=== PATIENT | male | born 1945 | race Caucasian/White ===

== ENCOUNTER 2017-03-02 07:49 | Outpatient (CLI) | payer MEDICARE, OTHER | END 2017-03-02 07:50 | disposition home or self-care (01) | DX: R19.7 Diarrhea, unspecified (principal) ==

== ENCOUNTER 2018-01-06 11:53 | Outpatient (CLI) | payer MEDICARE, OTHER ==
--- NOTE | 2018-01-06 12:51 | XRAY Report ---
THREE VIEW LEFT ELBOW: 01/06/2018 CLINICAL INDICATION: Pain. FINDINGS: AP, lateral, oblique views of the left elbow demonstrate no evidence of acute fracture or dislocation. No effusion is present. Posterior soft tissue swelling is present, and a small olecranon enthesophyte is noted. IMPRESSION: POSTERIOR SOFT TISSUE SWELLING. NO EVIDENCE OF FRACTURE. TD: 01/06/2018 12:51
== END 2018-01-06 11:54 | disposition home or self-care (01) ==
LOC: DI 11:53
PROVIDERS: ATTEND Specialist
DX: M25.522 Pain in left elbow (principal); R22.32 Localized swelling, mass and lump, left upper limb

== ENCOUNTER 2018-03-30 09:35 | Day surgery (SDC) | payer MEDICARE, OTHER ==
--- NOTE | 2018-03-30 10:22 | ED Physician Documentation ---
PD HPI UPPER EXT INJURY - Stated complaint Stated Complaint: SWOLLEN PINKY - Chief complaint Chief Complaint: Ext Problem - History obtained from History obtained from: Patient - History of Present Illness Location: Left, Finger (Little finger) Timing - duration: Days (Present for past year, but worse for the past ten days. ) Worsened by: Palpating Associated symptoms: Swelling, Discolored Recently seen: Clinic (Sent here from Dr. Boggs's office.) - Additonal information Additional information: The patient is a 72-year-old male who presents with pain and swelling at the DIP joint of his left little finger. He noticed a "bump" at the joint for the past year, but it is become much more swollen and painful over the past 10 days. He was seen this morning by his primary physician, and was sent here for further evaluation and treatment. Past history is significant for shrapnel injuries while serving in the in [employer]. Review of Systems Constitutional: denies: Fever Respiratory: denies: Dyspnea Skin: denies: Rash Musculoskeletal: reports: Extremity pain (Left little finger.), Joint swelling ( DIP joint in left little finger.) Neurologic: denies: Focal weakness, Numbness PD PAST MEDICAL HISTORY - Past Medical History Cardiovascular: Coronary artery disease, Other Respiratory: Pneumonia, Sleep apnea Endocrine/Autoimmune: None GI: None : None Psych: Claustrophobia Musculoskeletal: None Derm: None - Past Surgical History Past Surgical History: Yes Cardiovascular: Coronary stent - Present Medications Home Medications: Ambulatory Orders Medication Instructions Recorded Confirmed Lorazepam [Ativan] 1 mg PO TID PRN #10 tablet 10/12/16 10/20/16 Metoprolol Succinate [Toprol Xl] 25 mg PO DAILY 10/17/16 10/20/16 Omeprazole [PriLOSEC] 20 mg PO DAILY 10/17/16 10/20/16 Pravastatin [Pravachol] 40 mg PO QPM 10/17/16 10/20/16 Testosterone [Fortesta] 1 applic TOP DAILY 10/17/16 10/20/16 Valsartan/Hydrochlorothiazide 1 tab PO DAILY 10/17/16 10/20/16 [Valsartan-Hctz 160-12.5 mg Tab] Sildenafil Citrate [Viagra] 100 mg PO PRN PRN 10/20/16 10/20/16 - Allergies Allergies/Adverse Reactions: Allergies Allergy/AdvReac Type Severity Reaction Status Date / Time morphine Allergy Emesis Verified 03/30/18 09:42 - Social History Does the pt smoke?: No Smoking Status: Never smoker Does the pt drink ETOH?: Yes Does the pt have substance abuse?: No - Immunizations Immunizations are current?: No - POLST Patient has POLST: No PD ED PE NORMAL - Vitals Vital signs reviewed: Yes (hypertensive) - General General: Alert and oriented X 3, Well developed/nourished - HEENT HEENT: Atraumatic - Respiratory Respiratory: No respiratory distress - Derm Derm: No rash - Extremities Extremities: Other (There is swelling at the DIP joint of the left little finger with associated erythema. There is tenderness to palpation. There is no break in the integument. Distal neurovascular is intact.) - Neuro Neuro: Alert and oriented X 3, No motor deficit, No sensory deficit Results - Vitals Vitals: Vital Signs - 24 hr 03/30/18 03/30/18 03/30/18 09:40 11:28 15:48 Temperature 36.5 C 36.0 C L Heart Rate 88 70 74 Respiratory 14 18 18 Rate Blood Pressure 168/91 H 159/85 H 150/71 H Blood Pressure [Brachial artery] O2 Saturation 98 97 100 03/30/18 03/30/18 03/30/18 18:00 18:11 18:29 Temperature 36.6 C 36.6 C Heart Rate 82 78 78 Respiratory 16 16 20 Rate Blood Pressure Blood Pressure 157/80 H 149/84 H 154/87 H [Brachial artery] O2 Saturation 98 100 100 Oxygen O2 Source Room air - Labs Labs: Laboratory Tests 03/30/18 03/30/18 03/30/18 11:47 11:47 11:47 WBC 5.4 RBC 4.52 L Hgb 14.9 Hct 43.2 MCV 95.6 H MCH 32.9 H MCHC 34.5 RDW 13.8 Plt Count 163 MPV 9.4 Neut # 3.0 Lymph # 1.7 [place] # 0.6 Eos # 0.1 Baso # 0.0 Absolute Nucleated RBC 0.00 Nucleated RBC % 0.1 ESR PT 11.2 INR 1.0 Sodium 134 L Potassium 4.4 Chloride 100 L Carbon Dioxide 25 Anion Gap 9.0 BUN 15 Creatinine 1.4 H Estimated GFR (MDRD) 50 L Glucose 92 Calcium 9.3 Total Bilirubin 1.0 AST 76 H ALT 94 H Alkaline Phosphatase 55 C-Reactive Protein < 1.0 Total Protein 7.5 Albumin 4.4 Globulin 3.1 Albumin/Globulin Ratio 1.4 Lipase 42 03/30/18 11:47 WBC RBC Hgb Hct MCV MCH MCHC RDW Plt Count MPV Neut # Lymph # [place] # Eos # Baso # Absolute Nucleated RBC Nucleated RBC % ESR 14 PT INR Sodium Potassium Chloride Carbon Dioxide Anion Gap BUN Creatinine Estimated GFR (MDRD) Glucose Calcium Total Bilirubin AST ALT Alkaline Phosphatase C-Reactive Protein Total Protein Albumin Globulin Albumin/Globulin Ratio Lipase PD MEDICAL DECISION MAKING - ED course Complexity details: reviewed results, re-evaluated patient, considered differential, d/w patient, d/w teamcenter consultant ED course: The patient's presentation is significant for bony erosion at the DIP joint of the left index finger, consistent with osteomyelitis. Gouty arthritis remains another consideration. Treatment in the emergency department included administration of ceftriaxone 1 g IV. I discussed his condition with Dr. Lyon, orthopedic surgeon, who evaluated him in the emergency department and plans same day surgery. Departure - Departure Disposition: ED Transfer to [facility] Clinical Impression: Osteomyelitis of finger of left hand Condition: Stable Discharge Date/Time: 03/30/18 16:48
[2018-03-30] MEDS ORDERED: VANCOMYCIN INJ 1 GM in SODIUM CHLORIDE 0.9% 500 ML IV STA (10:30)
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
[2018-03-30 11:57] LABS: BASOPHILS % (AUTO) 0.8 %; EOSINOPHILS # (AUTO) 0.1 10^3/uL (0.0-0.7); EOSINOPHILS % (AUTO) 2.6 %; HGB - HEMOGLOBIN 14.9 g/dL (14.0-18.0); LYMPHOCYTES # (AUTO) 1.7 10^3/uL (1.5-3.5); LYMPHOCYTES % (AUTO) 30.5 %; MEAN CORPUSCULAR HEMOGLOBIN 32.9 pg (27.0-31.0); MEAN CORPUSCULAR HGB CONC 34.5 g/dL (32.0-36.0); MEAN CORPUSCULAR VOLUME 95.6 fL (80.0-94.0); MEAN PLATELET VOLUME 9.4 fL (7.4-11.4); MONOCYTES # (AUTO) 0.6 10^3/uL (0.0-1.0); MONOCYTES % (AUTO) 10.4 %; NEUTROPHILS % (AUTO) 55.7 %; PLT - PLATELET COUNT 163 10^3/uL (130-450); RED BLOOD COUNT 4.52 10^6/uL (4.70-6.10); RED CELL DISTRIBUTION WIDTH 13.8 % (12.0-15.0); WHITE BLOOD COUNT 5.4 x10^3/uL (4.8-10.8)
[2018-03-30 12:05] LABS: PT - PROTHROMBIN TIME 11.2 secs (9.9-12.6)
[2018-03-30 12:16] LABS: ALBUMIN 4.4 g/dL (3.2-5.5); ALBUMIN/GLOBULIN RATIO 1.4 (1.0-2.2); ALKALINE PHOSPHATASE 55 IU/L (42-121); ALT ALANINE AMINOTRANSFERASE 94 IU/L (10-60); AST ASPARTATE AMINOTRANSFERASE 76 IU/L (10-42); BUN - BLOOD UREA NITROGEN 15 mg/dL (6-20); CALCIUM 9.3 mg/dL (8.5-10.3); CARBON DIOXIDE - CO2 25 mmol/L (21-32); CHLORIDE 100 mmol/L (101-111); CREATININE 1.4 mg/dL (0.6-1.2); GFR - MDRD 50 (>89); GLUCOSE 92 mg/dL (70-100); LIPASE 42 U/L (22-51); SODIUM 134 mmol/L (135-145); TOTAL PROTEIN 7.5 g/dL (6.7-8.2)
[2018-03-30 12:18] LABS: CRP - C-REACTIVE PROTEIN < 1.0 mg/dL (0-1.0)
[2018-03-30] MEDS ORDERED: HYDROmorphone 0.5 MG/0.5 ML SYRINGE IVP SCH (12:20)
[2018-03-30] MEDS ORDERED: SODIUM CHLORIDE 0.9% 1,000 ML IV SCH (13:00)
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
[2018-03-30] MEDS ORDERED: ONDANSETRON 4 MG/2 ML VIAL IVP STA (14:09)
[2018-03-30] MEDS ORDERED: PROMETHAZINE INJ 12.5 MG in SODIUM CHLORIDE 0.9% 50 ML IV PRN (15:51)
[2018-03-30] MEDS ORDERED: ROPIVACAINE 0.5% PF 20 ML AMPULE ONE (16:45)
[2018-03-30] MEDS ORDERED: DEXAMETHASONE 4 MG/ML VIAL ONE (16:45)
[2018-03-30] MEDS ORDERED: LIDOCAINE-MPF 2% 5 ML VIAL IM ONE (17:00)
[2018-03-30] MEDS ORDERED: MIDAZOLAM 2 MG/2 ML VIAL IVP ONE (17:00)
[2018-03-30] MEDS ORDERED: PROPOFOL 200 MG/20 ML VIAL IVP ONE (17:00)
[2018-03-30] MEDS ORDERED: LACTATED RINGERS 1,000 ML IV ONE (18:00)
[2018-03-30 18:29] VITALS: BP 154/87
--- NOTE | 2018-03-30 23:03 | PROCEDURE REPORT ---
DATE OF SERVICE: 03/30/2018 Physician: Karl Byers MD SURGEON: Karl Byers MD SPUD SORTER: None. ANESTHESIA: Ulnar nerve block. PREOPERATIVE DIAGNOSIS: Left fifth digit osteomyelitis versus gout. POSTOPERATIVE DIAGNOSIS: Left fifth digit osteomyelitis versus gout. ESTIMATED BLOOD LOSS: 1 mL. SPECIMENS REMOVED: Aerobic and anaerobic cultures, as well as acid fast bacteria cultures. Path specimen sent as well. INDICATIONS: This man had for about a year noticed swelling of the DIP joint of his left fifth digit. Ten days ago, it began to get red and swollen and sore. It got extremely sore and he came to the emergency room today. Radiographs showed a moth-eaten appearance to the distal phalanx and middle phalanx with a generally absent joint space. In the adjacent digit, there was one small "rat bite" out of the distal end of the middle phalanx suggestive of gout. PROCEDURE: The patient was met in the preoperative area by the monument erector who applied an ulnar nerve block. The patient was then taken to the operating room, and placed on the operating table with the left upper extremity prepped and sterilely draped in the usual fashion. A [place] digital tourniquet was used. A slightly curving incision was made generally longitudinally just to the ulnar aspect of the midline over the DIP joint. Immediately expressed was a white pasty substance consistent with gout. There was no purulence. It took about 20-25 meticulous minutes using a curet to try to remove all of the white material. A very small amount of tissue was removed with this. A couple of flakes of bone were also removed where they had been detached. There was really no joint space. The subchondral bone formed a wafer-like and to a very thin, middle phalanx. The wound was irrigated with normal saline. The skin was closed with interrupted 4-0 nylon [id number] sutures. A sterile bandage was applied. Tube gauze was applied over the top of this. The patient was then moved to the transfer cart and taken to the recovery room in good condition, having tolerated the procedure well. TD: 03/30/2018 18:20
== END 2018-03-30 11:38 | disposition home or self-care (01) ==
LOC: ED 09:35 → SDS 11:37
PROVIDERS: ATTEND Orthopaedic Surgery
PROC: 0PBT0ZZ Excision of Right Finger Phalanx, Open Approach (ICD-10-PCS; principal; 2018-03-30 13:00)
DX: M1A.9XX1 Chronic gout, unspecified, with tophus (tophi) (principal); I25.10 Atherosclerotic heart disease of native coronary artery without angina pectoris; M79.89 Other specified soft tissue disorders; M79.645 Pain in left finger(s)
CPT/HCPCS: 11044; 36415; 73130; 80053; 83690; 85025; 85610; 85651; 86140; 87070; 87205; 96365; 96366; 96367; 96375; 99283; 99284; J1170; J3370; J7040; J7120; 87075; 88305

== ENCOUNTER 2018-04-07 12:36 | Emergency (ER) | payer MEDICARE, OTHER ==
--- NOTE | 2018-04-07 12:57 | ED Physician Documentation ---
PD HPI WOUND RECHECK - Stated complaint Stated Complaint: LEFT PINKY PX/POST OP COMP - Chief complaint Chief Complaint: Wound - Histroy obtained from History obtained from: Patient - History of Present Illness Location: Left Hand (little finger) Timing - onset: Today (he has had it bandaged with ointment mostly continually since surgery. Noted redness and swelling today when bandage off. No proximal red streaks.) Associated symptoms: Redness, Swelling, Drainage (possibly, with some wetness to it as well as residual ointment.) Recently seen: Surgery (had gout of the finger and then got infected, was on Keflex initially without improvement, and now on Bactrim. Had surgery of it for debridement of the infection several days ago. Has had it bandaged and regular ointment since.) Review of Systems Constitutional: denies: Chills Nose: denies: Rhinorrhea / runny nose, Congestion Throat: denies: Sore throat Respiratory: denies: Cough GI: denies: Abdominal Pain, Nausea, Vomiting, Diarrhea PD PAST MEDICAL HISTORY - Past Medical History Cardiovascular: Coronary artery disease, Other Respiratory: Pneumonia, Sleep apnea Endocrine/Autoimmune: None GI: None : None Psych: Claustrophobia Musculoskeletal: None Derm: None - Past Surgical History Past Surgical History: Yes Cardiovascular: Coronary stent - Present Medications Home Medications: Ambulatory Orders Medication Instructions Recorded Confirmed Lorazepam [Ativan] 1 mg PO TID PRN #10 tablet 10/12/16 10/20/16 Metoprolol Succinate [Toprol Xl] 25 mg PO DAILY 10/17/16 10/20/16 Omeprazole [PriLOSEC] 20 mg PO DAILY 10/17/16 10/20/16 Pravastatin [Pravachol] 40 mg PO QPM 10/17/16 10/20/16 Testosterone [Fortesta] 1 applic TOP DAILY 10/17/16 10/20/16 Valsartan/Hydrochlorothiazide 1 tab PO DAILY 10/17/16 10/20/16 [Valsartan-Hctz 160-12.5 mg Tab] Sildenafil Citrate [Viagra] 100 mg PO PRN PRN 10/20/16 10/20/16 Doxycycline Monohydrate 100 mg PO BID #14 tablet 04/07/18 Mupirocin 1 applic TP TID #15 oint...g. 04/07/18 - Allergies Allergies/Adverse Reactions: Allergies Allergy/AdvReac Type Severity Reaction Status Date / Time morphine Allergy Emesis Verified 04/07/18 12:48 - Social History Does the pt smoke?: No Smoking Status: Never smoker Does the pt drink ETOH?: Yes Does the pt have substance abuse?: No - Immunizations Immunizations are current?: No - POLST Patient has POLST: No PD ED PE NORMAL - Vitals Vital signs reviewed: Yes - General General: Alert and oriented X 3, No acute distress, Well developed/nourished - Derm Derm: Normal color, Warm and dry, Other (left little finger with some sutures in place. Redness and swelling around the site. No proximal streaking. Some moisture of the wound base and appearance of residual ointment. No pus per se. Normal sesnation at the tip. ) Results - Vitals Vitals: Oxygen O2 Source Room air - Labs Labs: Microbiology 04/07/18 13:28 Wound Culture - Preliminary Finger - Left Pinky No growth PD MEDICAL DECISION MAKING - ED course Complexity details: reviewed old records, reviewed results, considered differential (redness and some swelling but also whitish at edges that looks overly moist. Consider infection and also could be reaction to antibiotic ointment and on too long. Cultures from surgery had no growth, though he was on abx at the time. There was some moisture of the wound today, but not purulence. Culture obtained to see if growth but with caveat that it is surface of wound.) , d/w patient Departure - Departure Disposition: 01 Home, Self Care Clinical Impression: Post op infection Qualifiers: Encounter type: subsequent encounter Qualified Code(s): T81.4XXD - Infection following a procedure, subsequent encounter Condition: Stable Record reviewed to determine appropriate education?: Yes Follow-Up: Karl Byers MD [Provider Admit Priv/Credential] - Prescriptions: Doxycycline Monohydrate 100 mg PO BID #14 tablet Mupirocin 1 applic TP TID #15 oint...g. Comments: The wound does look like it is infected with the redness and swelling and with it increasing. The previous culture has been negative. We will see if the culture from today has any growth but will take a couple of days. Meanwhile consider also the possibility of just local irritation from the ointment or bandaging. I would cleanse the wound 2-3 times a day with dilute peroxide and water or just soap and water and use no ointment today and then tomorrow start using just small amount of mupirocin instead of the Neosporin you have been using. Will also change the sulfa antibiotic to doxycycline twice daily presuming staff is the likely organism. Recheck if still worsening over the next couple of days. Otherwise follow-up with orthopedics on Tuesday. Discharge Date/Time: 04/07/18 13:53
[2018-04-07] MEDS ORDERED: DOXYCYCLINE 100 MG TABLET PO STA (13:28)
[2018-04-07 13:53] VITALS: BP 146/88
== END 2018-04-07 13:53 | disposition home or self-care (01) ==
LOC: ED 12:36
DX: T81.4XXA Infection following a procedure, initial encounter (principal); L08.9 Local infection of the skin and subcutaneous tissue, unspecified; Y83.8 Other surgical procedures as the cause of abnormal reaction of the patient, or of later complication, without mention of misadventure at the time of the procedure
CPT/HCPCS: 87070; 87205; 99283; A9270

== ENCOUNTER 2018-06-08 08:46 | Outpatient (CLI) | payer MEDICARE, OTHER ==
--- NOTE | 2018-06-08 11:00 | Ultrasound Report ---
Procedure Date: 06/08/2018 Accession Number: [id number] / [id number] Procedure: US - Abdomen Limited CPT Code: FULL RESULT: EXAM: Abdomen Limited DATE: 06/08/2018 10:25 AM CLINICAL HISTORY: PERSISTENT LFT ELEVATION COMPARISON: 10/16/2016. TECHNIQUE: Real-time scanning was performed with static images obtained. FINDINGS: Liver: Liver again appears echogenic and heterogeneous. Not seen previously, there is a somewhat geographic appearing 2.1 x 1.7 x 1.2 cm hypoechoic masslike area with nearby parenchymal vasculature not displaced by color Doppler. While this likely represents new focal fatty sparing, the sonographic appearance is somewhat atypical. No other mass is seen. There is no perihepatic ascites. Gallbladder: Surgically absent. Biliary System: Common bile duct measures 4 mm. No intrahepatic or extrahepatic ductal dilatation. Pancreas: Visualized portion is unremarkable. Kidneys: Right: 11.5 cm longitudinally. 0.7 cm exophytic simple cyst. No contour-deforming solid mass, stones, or hydronephrosis. IVC is unremarkable on grayscale ultrasound. IMPRESSION: Hepatic steatosis. Interval development of a hypoechoic masslike lesion. This is felt to most likely represent focal fatty sparing. However, the sonographic appearance is not diagnostic of this. In absence of HCC risk factors or known cancer, close attention on annual ultrasound follow-up is sufficient. If there are risk factors for hepatocellular carcinoma or the patient has a known cancer, multiphase CT or MRI with liver mass protocol is recommended. RADIA
== END 2018-06-08 08:47 | disposition home or self-care (01) ==
LOC: DI 08:46
PROVIDERS: ATTEND Internal Medicine
DX: R74.8 Abnormal levels of other serum enzymes (principal)
CPT/HCPCS: 76705

== ENCOUNTER 2018-07-12 20:48 | Emergency (ER) | payer MEDICARE, OTHER ==
--- NOTE | 2018-07-12 22:08 | ED Physician Documentation ---
PD HPI UPPER EXT INJURY - Stated complaint Stated Complaint: LT WRIST PX - Chief complaint Chief Complaint: Ext Problem - History obtained from History obtained from: Patient - History of Present Illness Location: Left, Wrist Type of injury: No: Fall, Twist Where injury occurred: Home Timing - onset: Today Timing - details: Abrupt onset, Still present Improved by: No: Rest Worsened by: Moving, Palpating Associated symptoms: Swelling, Discolored (red). No: Weakness, Numbness Similar symptoms before: Diagnosis (has not had gout in the wrist, but other joints.) Recently seen: Not recently seen Review of Systems Constitutional: denies: Fever, Chills, Myalgias Nose: denies: Rhinorrhea / runny nose, Congestion Throat: denies: Dental pain / toothache, Sore throat Cardiac: denies: Chest pain / pressure Respiratory: denies: Cough GI: denies: Abdominal Pain Skin: denies: Rash PD PAST MEDICAL HISTORY - Past Medical History Past Medical History: No Cardiovascular: Other Respiratory: Pneumonia, Sleep apnea Neuro: None Endocrine/Autoimmune: None GI: None : None HEENT: None Psych: Claustrophobia Musculoskeletal: Gout Derm: None - Past Surgical History Past Surgical History: Yes General: Cholecystectomy Cardiovascular: Coronary stent - Present Medications Home Medications: Ambulatory Orders Medication Instructions Recorded Confirmed Lorazepam [Ativan] 1 mg PO TID PRN #10 tablet 10/12/16 10/20/16 Metoprolol Succinate [Toprol Xl] 25 mg PO DAILY 10/17/16 10/20/16 Omeprazole [PriLOSEC] 20 mg PO DAILY 10/17/16 10/20/16 Testosterone [Fortesta] 1 applic TOP DAILY 10/17/16 10/20/16 Sildenafil Citrate [Viagra] 100 mg PO PRN PRN 10/20/16 10/20/16 Doxycycline Monohydrate 100 mg PO BID #14 tablet 04/07/18 Mupirocin 1 applic TP TID #15 oint...g. 04/07/18 Simvastatin [Zocor] 07/12/18 Dexamethasone [Decadron] 4 mg PO DAILY #5 tablet 07/13/18 HYDROmorphone [Dilaudid] 2 mg PO Q6H PRN #10 tablet 07/13/18 Naproxen 375 mg PO BID #20 tablet 07/13/18 Ondansetron Odt [Zofran] 4 mg TL Q6H PRN #15 tablet 07/13/18 - Allergies Allergies/Adverse Reactions: Allergies Allergy/AdvReac Type Severity Reaction Status Date / Time morphine Allergy Emesis Verified 07/12/18 20:56 - Social History Does the pt smoke?: No Smoking Status: Never smoker Does the pt drink ETOH?: Yes Does the pt have substance abuse?: No - Immunizations Immunizations are current?: No - POLST Patient has POLST: No PD ED PE NORMAL - Vitals Vital signs reviewed: Yes - General General: Alert and oriented X 3, Well developed/nourished, Other (marked pain with wrist palpation and movement. ) - HEENT HEENT: Pharynx benign - Neck Neck: Supple, no meningeal sign, No adenopathy - Cardiac Cardiac: RRR, No murmur - Respiratory Respiratory: Clear bilaterally - Abdomen Abdomen: Soft, Non tender - Derm Derm: Warm and dry, Other (redness and marked tenderness to touch dorsum left wrist. No skin sores nor lesions. ) - Extremities Extremities: No deformity. No: Normal ROM s pain - Neuro Neuro: Alert and oriented X 3, No motor deficit, No sensory deficit, Normal speech Results - Vitals Vitals: Oxygen O2 Source Room air - Labs Labs: Laboratory Tests 07/12/18 07/12/18 23:03 23:03 WBC 10.4 RBC 4.47 L Hgb 15.1 Hct 42.7 MCV 95.4 H MCH 33.8 H MCHC 35.4 RDW 14.2 Plt Count 190 MPV 10.0 Neut # (Auto) 7.0 H Lymph # (Auto) 2.3 [place] # (Auto) 1.0 Eos # (Auto) 0.0 Baso # (Auto) 0.1 Absolute Nucleated RBC 0.00 Nucleated RBC % 0.0 Sodium 133 L Potassium 3.9 Chloride 99 L Carbon Dioxide 23 Anion Gap 11.0 BUN 14 Creatinine 1.0 Estimated GFR (MDRD) 74 L Glucose 105 H Calcium 9.1 Total Bilirubin 1.4 H AST 28 ALT 42 Alkaline Phosphatase 59 Total Protein 7.4 Albumin 4.4 Globulin 3.0 Albumin/Globulin Ratio 1.5 Lipase 34 PD MEDICAL DECISION MAKING - ED course Complexity details: re-evaluated patient (given IV meds with moderate improvement, no nausea. Given repeat dose of Dilaudid and caused marked nausea and vomiting. Given antiemetic and symptoms improved after short time. ), considered differential (marked pain of wrist. No signs of trauma/skin lesions. Is warm and red. Has had gout in the past. ), d/w patient - Sepsis Event Vital Signs: Oxygen O2 Source Room air Departure - Departure Disposition: 01 Home, Self Care Clinical Impression: Acute pain of left wrist Gout flare Qualifiers: Gout site: wrist Gout etiology: unspecified cause Laterality: left Qualified Code(s): M10.9 - Gout, unspecified Condition: Stable Record reviewed to determine appropriate education?: Yes Instructions: ED Arthritis Gout Follow-Up: Esa White MD [Primary Care Provider] - Prescriptions: Dexamethasone [Decadron] 4 mg PO DAILY #5 tablet HYDROmorphone [Dilaudid] 2 mg PO Q6H PRN #10 tablet PRN Reason: Pain Naproxen 375 mg PO BID #20 tablet Ondansetron Odt [Zofran] 4 mg TL Q6H PRN #15 tablet PRN Reason: Nausea / Vomiting Comments: Drink lots of fluids. Use anti-inflammatories naproxen and dexamethasone as directed for the next 5 days. Ondansetron if needed for nausea. Add Dilaudid oral tablet or your previous oxycodone as needed for pain. Recheck if not well improved over the next couple of days. Discharge Date/Time: 07/13/18 01:22
[2018-07-12] MEDS ORDERED: KETOROLAC 60 MG/2 ML VIAL IVP STA (22:52)
[2018-07-12] MEDS ORDERED: ONDANSETRON 4 MG/2 ML VIAL IVP STA ×2 (22:52→23:57)
[2018-07-12] MEDS ORDERED: HYDROmorphone 1 MG/ML CARPUJECT IVP STA ×2 (22:52→23:35)
[2018-07-12] MEDS ORDERED: DEXAMETHASONE 10 MG/ML VIAL IVP STA (22:53)
[2018-07-12 23:06] LABS: BASOPHILS # (AUTO) 0.1 10^3/uL (0.0-0.1); EOSINOPHILS % (AUTO) 0.3 %; HGB - HEMOGLOBIN 15.1 g/dL (14.0-18.0); LYMPHOCYTES # (AUTO) 2.3 10^3/uL (1.5-3.5); LYMPHOCYTES % (AUTO) 22.2 %; MEAN CORPUSCULAR HEMOGLOBIN 33.8 pg (27.0-31.0); MEAN CORPUSCULAR HGB CONC 35.4 g/dL (32.0-36.0); MEAN CORPUSCULAR VOLUME 95.4 fL (80.0-94.0); MONOCYTES % (AUTO) 9.3 %; NEUTROPHILS % (AUTO) 67.2 %; PLT - PLATELET COUNT 190 10^3/uL (130-450); RED BLOOD COUNT 4.47 10^6/uL (4.70-6.10); RED CELL DISTRIBUTION WIDTH 14.2 % (12.0-15.0); WHITE BLOOD COUNT 10.4 x10^3/uL (4.8-10.8)
[2018-07-12 23:18] LABS: ALBUMIN 4.4 g/dL (3.2-5.5); ALBUMIN/GLOBULIN RATIO 1.5 (1.0-2.2); BILIRUBIN,TOTAL 1.4 mg/dL (0.2-1.0); CALCIUM 9.1 mg/dL (8.5-10.3); TOTAL PROTEIN 7.4 g/dL (6.7-8.2)
[2018-07-13] MEDS ORDERED: PROMETHAZINE INJ 12.5 MG in SODIUM CHLORIDE 0.9% 50 ML IV STA (00:18)
[2018-07-13] MEDS ORDERED: SODIUM CHLORIDE 0.9% 1,000 ML IV ONE (00:18)
[2018-07-13] MEDS ORDERED: SODIUM CHLORIDE 0.9% 0 ML IV ONE (00:30)
[2018-07-13 01:04] VITALS: BP 142/61
== END 2018-07-13 01:22 | disposition home or self-care (01) ==
LOC: ED 20:48
DX: M10.9 Gout, unspecified (principal)
CPT/HCPCS: 36415; 80053; 83690; 85025; 96365; 96375; 96376; 99283; J1170; J7040

== ENCOUNTER 2018-12-25 06:37 | Outpatient (CLI) | payer MEDICARE, OTHER ==
--- NOTE | 2018-12-25 07:32 | Ultrasound Report ---
Reason: ABNORMAL FINDINGS ON DX IMAGING OF LIVER AND BILIA Procedure Date: 12/25/2018 Accession Number: [id number] / [id number] Procedure: US - Abdomen Limited CPT Code: FULL RESULT: EXAM: ABDOMEN ULTRASOUND LIMITED, RUQ EXAM DATE: 12/25/2018 06:43 AM. CLINICAL HISTORY: Abnormal findings within the liver. Please assess. COMPARISON: ABDOMEN LIMITED 06/08/2018 9:43 AM. TECHNIQUE: Real-time scanning was performed with static images obtained. FINDINGS: Liver: Diffusely echogenic hepatic parenchyma. Again seen in the left lobe is a lobular heterogeneous hypoechoic lesion measuring on the current study 2.3 x 1.3 x 1.6 cm, previously measured 2.1 x 1.2 x 1.7 cm. No new hepatic lesions are identified. No intrahepatic ductal dilatation. The liver is upper normal in size, 16.7 cm. Main portal vein flow: Hepatopetal. Gallbladder: Status post cholecystectomy. Biliary System: CBD measures 4 mm. No intrahepatic or extrahepatic ductal dilatation. Other: Right kidney is lobular in contour and normal in echotexture and measures 11.1 cm. No hydronephrosis. Exophytic lower pole cyst is again seen measuring 0.9 x 0.8 cm, previously measured 0.7 x 0.6 cm. IMPRESSION: 1. Diffuse fatty liver. 2. Hypoechoic left hepatic lobe 2.3 cm lesion increased in size compared to the study from 06/08/2018, indeterminate. Further detail with MRI/CT of the liver recommended. 3. Status post cholecystectomy. No biliary ductal dilatation. 4. Lower pole right renal 0.9 cm cyst. RADIA
== END 2018-12-25 06:38 | disposition home or self-care (01) ==
LOC: DI 06:37
PROVIDERS: ATTEND Internal Medicine
DX: K76.0 Fatty (change of) liver, not elsewhere classified (principal); K76.9 Liver disease, unspecified
CPT/HCPCS: 76705

== ENCOUNTER 2019-01-19 09:39 | Outpatient (CLI) | payer MEDICARE, OTHER ==
[2019-01-19 10:09] LABS: CREATININE 1.3 mg/dL (0.6-1.2)
[2019-01-19] MEDS ORDERED: IOPAMIDOL-300 100 ML VIAL ONE (10:11)
[2019-01-19] MEDS ORDERED: IOPAMIDOL-300 100 ML VIAL IVP ONE (10:33)
--- NOTE | 2019-01-19 13:05 | CT Report ---
Reason: HETEROGENOUS HYPOECHOIC MASS 2.3 X 1.3 X 1.6 Procedure Date: 01/19/2019 Accession Number: [id number] / [id number] Procedure: CT - ABDOMEN W/WO CPT Code: FULL RESULT: EXAM: CT ABDOMEN WITHOUT AND WITH CONTRAST EXAM DATE: 01/19/2019 10:41 AM. HISTORY: Heterogenous hypoechoic mass in the liver. COMPARISON: ABDOMEN LIMITED 12/25/2018 6:42 AM ABDOMEN LIMITED 06/08/2018 9:43 AM. TECHNIQUE: Routine helical CT imaging was performed through the abdomen before and after administration of IV contrast: ISOVUE 300 100 ML. Enteric contrast: No. Reconstruction: Coronal and sagittal. In accordance with CT protocol optimization, one or more of the following dose reduction techniques were utilized for this exam: automated exposure control, adjustment of mA and/or KV based on patient size, or use of iterative reconstructive technique. FINDINGS: Lung Bases: Unremarkable. Liver: In the left lobe of the liver corresponding to the hypoechoic lesion on ultrasound is an arterial enhancing lesion which measures 2.0 x 1.1 cm on the arterial phase and has a more difficult geographic appearance on the portal venous phase. The findings are occult on the noncontrast sequence. While the CT appearance is generally compatible with flash filling hemangioma, this would be expected to be hyperechoic on ultrasound. Given the hypoechoic appearance on ultrasound, the lesion is technically indeterminate; enhancement pattern is not diagnostic of HCC as the 7 minute delay images demonstrate that both lesions continue to follow blood pool and lack of washout or pseudocapsule. Background hepatic steatosis. In the dome of the right lobe of the liver, image 10 series 6 is a lesion with similar enhancing characteristics, 1.8 x 1.1 cm, also indeterminate. Gallbladder/Bile Ducts: Status post cholecystectomy. Spleen: Normal. Pancreas: Normal. No masses or ductal obstruction. Adrenal Glands: Normal. Kidneys: Left renal cyst as well as renal hypodensities which are too small to characterize. No obstruction. Peritoneal Cavity/Bowel: Diverticulosis without diverticulitis. No free fluid, free air or adenopathy. No masses or acute inflammatory process. Vasculature: No aneurysms or other significant abnormality. Bones: No significant abnormality. Other: None. IMPRESSION: Left lobe of the liver lesion remains indeterminate. Additional indeterminate lesion in the right hepatic dome. MRI hepatic mass protocol with and without contrast is recommended. Hepatic steatosis. RADIA
== END 2019-01-19 09:40 | disposition home or self-care (01) ==
LOC: LAB 09:39 → DI 09:40
PROVIDERS: ATTEND Internal Medicine
DX: K76.9 Liver disease, unspecified (principal)
CPT/HCPCS: 36415; 74170; 82565; Q9967

== ENCOUNTER 2019-07-17 08:20 | Day surgery (SDC) | payer MEDICARE, OTHER ==
[2019-07-17] MEDS ORDERED: LACTATED RINGERS 1,000 ML IV ONE (08:45)
[2019-07-17] MEDS ORDERED: MIDAZOLAM 2 MG/2 ML VIAL IVP ONE (10:01)
[2019-07-17] MEDS ORDERED: fentaNYL 250 MCG/5 ML VIAL IVP ONE (10:01)
[2019-07-17 11:06] VITALS: BP 130/79
== END 2019-07-17 08:21 | disposition home or self-care (01) ==
LOC: SDS 08:20
PROVIDERS: ATTEND Internal Medicine Gastroenterology
PROC: 0DBH8ZZ Excision of Cecum, Via Natural or Artificial Opening Endoscopic (ICD-10-PCS; 2019-07-17)
PROC: 0DBK8ZZ Excision of Ascending Colon, Via Natural or Artificial Opening Endoscopic (ICD-10-PCS; principal; 2019-07-17 10:00)
DX: R19.4 Change in bowel habit (principal); D12.2 Benign neoplasm of ascending colon; D12.0 Benign neoplasm of cecum; K57.30 Diverticulosis of large intestine without perforation or abscess without bleeding; K21.9 Gastro-esophageal reflux disease without esophagitis; I25.10 Atherosclerotic heart disease of native coronary artery without angina pectoris; I10 Essential (primary) hypertension; G47.30 Sleep apnea, unspecified
CPT/HCPCS: 45380; J3010; J7120

== ENCOUNTER 2019-10-16 13:50 | Emergency (ER) | payer MEDICARE, OTHER ==
[2019-10-16] MEDS ORDERED: ASPIRIN CHEW 81 MG TABLET PO STA (13:59)
--- NOTE | 2019-10-16 14:08 | ED Physician Documentation ---
History of Present Illness - Stated complaint Stated Complaint: CHEST PX - Chief complaint Chief Complaint: Cardiac - Additonal information Additional information: This is a 74-year-old male history of Hypertension, hyperlipidemia, coronary artery disease status post PCI x3 in the RCA, circumflex, and LAD done in 2005 at [facility], who presents with chest pain. Patient states that he Has had several episodes of chest pain over the last 5 days, they typically awoken up at night and been a substernal pressure. This morning at 6 AM he woke up and he had pressure that radiated to his right arm. He took a tablet of hydrocodone and pain resolved somewhat, but the episode lasted around 15 minutes and he states it is bad enough that it scared him. He also had some diaphoresis associated with this episode. He currently has minimal discomfort he describes as a 1 out of 10 pressure without radiation. He denies any shortness of breath. He had a stress test done at [facility] with Dr. Valle 5 years ago which reportedly was reassuring. Review of Systems Constitutional: denies: Fever Nose: denies: Rhinorrhea / runny nose Cardiac: reports: Chest pain / pressure Respiratory: denies: Dyspnea GI: denies: Abdominal Pain, Vomiting : denies: Dysuria Skin: denies: Rash Neurologic: denies: Generalized weakness Immunocompromised: denies: Immunocompromised PD PAST MEDICAL HISTORY - Past Medical History Cardiovascular: Other Respiratory: Pneumonia, Sleep apnea, CPAP use Neuro: None Endocrine/Autoimmune: None GI: GERD : None HEENT: None Psych: Claustrophobia Musculoskeletal: Gout Derm: None - Past Surgical History Past Surgical History: Yes General: Cholecystectomy Cardiovascular: Coronary stent - Present Medications Home Medications: Ambulatory Orders Medication Instructions Recorded Confirmed Metoprolol Succinate [Toprol Xl] 25 mg PO DAILY 10/17/16 10/20/16 Omeprazole [PriLOSEC] 20 mg PO DAILY 10/17/16 07/17/19 Allopurinol 300 mg PO DAILY 07/13/19 07/17/19 Losartan Potassium 100 mg PO DAILY 07/13/19 07/17/19 raNITIdine HCl [Zantac] 150 mg PO BID 07/13/19 07/17/19 Probenecid/Colchicine 1 tab DAILY 10/16/19 10/16/19 [Probenecid-Colchicine Tablet] Testosterone [Fortesta] 10/16/19 metroNIDAZOLE 0.75% GEL 10/16/19 - Allergies Allergies/Adverse Reactions: Allergies Allergy/AdvReac Type Severity Reaction Status Date / Time morphine Allergy Emesis Verified 10/16/19 13:54 - Social History Does the pt smoke?: No Smoking Status: Never smoker Does the pt drink ETOH?: Yes Does the pt have substance abuse?: No - Immunizations Immunizations are current?: No - POLST Patient has POLST: No PD ED PE NORMAL - Vitals Vital signs reviewed: Yes - General General: Alert and oriented X 3, No acute distress - HEENT HEENT: PERRL - Neck Neck: Supple, no meningeal sign - Cardiac Cardiac: RRR, No murmur - Respiratory Respiratory: Clear bilaterally - Abdomen Abdomen: Normal bowel sounds, Soft, Non tender, Non distended - Derm Derm: Warm and dry - Extremities Extremities: No deformity - Neuro Neuro: Alert and oriented X 3 - Psych Psych: Normal mood, Normal affect Results - Vitals Vitals: Vital Signs - 24 hr 10/16/19 10/16/19 17:30 17:45 Heart Rate 78 76 Respiratory 16 16 Rate Blood Pressure 158/95 H 177/95 H O2 Saturation 96 97 Oxygen O2 Source Room air - EKG (time done) 13:57 Other comments: Other comments (Rate 75, rhythm sinus, there is [address] depression in V4 and V5, no ST segment elevation. Intervals are within normal limits.) - Labs Labs: Laboratory Tests 10/16/19 10/16/19 10/16/19 14:05 14:05 14:05 WBC 6.5 RBC 4.90 Hgb 16.6 Hct 48.3 MCV 98.6 H MCH 33.9 H MCHC 34.4 RDW 13.1 Plt Count 190 MPV 11.0 Neut # (Auto) 3.8 Lymph # (Auto) 2.0 [place] # (Auto) 0.5 Eos # (Auto) 0.1 Baso # (Auto) 0.1 Absolute Nucleated RBC 0.00 Nucleated RBC % 0.0 Sodium 136 Potassium 4.1 Chloride 97 L Carbon Dioxide 30 Anion Gap 9.0 BUN 18 Creatinine 1.2 Estimated GFR (MDRD) 60 L Glucose 98 Calcium 9.4 Total Bilirubin 0.9 AST 44 H ALT 63 H Alkaline Phosphatase 67 Troponin I High Sens 511.9 H* Total Protein 7.7 Albumin 4.8 Globulin 2.9 Albumin/Globulin Ratio 1.7 Lipase 58 H PD MEDICAL DECISION MAKING - ED course Complexity details: considered differential (ACS, dysrhythmia, pneumothorax, pneumonia) ED course: Patient arrives his chest discomfort is a 1 out of 10, retention. His EKG does show some slight ST depressions in the precordial leads, but no elevation and there is no past EKG for comparison. He was given 325 aspirin, and labs are drawn. His troponin is quite elevated at 511, Otherwise unrevealing. Repeat EKG shows no significant change from the first. He was started on heparin. He appears to have an NSTEMI at this time, I think he will benefit from transfer to hospital with cardiology, his history, trop are quite concerning. He agrees to the transfer to [facility], and Dr. Pineda accepted at [facility]. Patient remains pain-free on my reevaluation with mild hypertension otherwise vital signs are within normal limits. He was transferred via ALS with heparin running. Departure - Departure Disposition: 02 Transfer Acute Care Hosp Clinical Impression: NSTEMI (non-ST elevation myocardial infarction) Condition: Stable Discharge Date/Time: 10/16/19 18:15
[2019-10-16 14:13] LABS: BASOPHILS # (AUTO) 0.1 10^3/uL (0.0-0.1); BASOPHILS % (AUTO) 0.9 %; EOSINOPHILS # (AUTO) 0.1 10^3/uL (0.0-0.7); EOSINOPHILS % (AUTO) 0.9 %; HGB - HEMOGLOBIN 16.6 g/dL (14.0-18.0); LYMPHOCYTES % (AUTO) 31.5 %; MEAN CORPUSCULAR HEMOGLOBIN 33.9 pg (27.0-31.0); MEAN CORPUSCULAR HGB CONC 34.4 g/dL (32.0-36.0); MEAN CORPUSCULAR VOLUME 98.6 fL (80.0-94.0); MONOCYTES # (AUTO) 0.5 10^3/uL (0.0-1.0); MONOCYTES % (AUTO) 8.1 %; NEUTROPHILS # (AUTO) 3.8 10^3/uL (1.5-6.6); NEUTROPHILS % (AUTO) 58.1 %; PLT - PLATELET COUNT 190 10^3/uL (130-450); RED CELL DISTRIBUTION WIDTH 13.1 % (12.0-15.0); WHITE BLOOD COUNT 6.5 x10^3/uL (4.8-10.8)
[2019-10-16 14:24] LABS: ALBUMIN 4.8 g/dL (3.2-5.5); ALBUMIN/GLOBULIN RATIO 1.7 (1.0-2.2); BILIRUBIN,TOTAL 0.9 mg/dL (0.2-1.0); CALCIUM 9.4 mg/dL (8.5-10.3); CREATININE 1.2 mg/dL (0.6-1.2); TOTAL PROTEIN 7.7 g/dL (6.7-8.2)
--- NOTE | 2019-10-16 14:41 | XRAY Report ---
Reason: Chest Pain Procedure Date: 10/16/2019 Accession Number: [id number] / [id number] Procedure: XR - Chest 1 View X-Ray CPT Code: 60367 Final Report FULL RESULT: EXAM: CHEST RADIOGRAPHY EXAM DATE: 10/16/2019 02:16 PM. CLINICAL HISTORY: Intermittent chest pain for 1 week, worse today. COMPARISON: CHEST 2 VIEW PA/LAT 10/02/2016 1:14 PM. TECHNIQUE: 1 view. FINDINGS: Cardiac leads overlie the chest. Heart size is normal. Calcified plaque in the aortic arch. No consolidation, pleural effusion, or pneumothorax. Redemonstrated azygous lobe in the medial right lung apex. IMPRESSION: No acute cardiopulmonary findings. RADIA
[2019-10-16] MEDS ORDERED: HEPARIN 25000UNITS/500ML (D5W) 25,000 UNIT/500 ML BAG IV STA (14:42)
[2019-10-16] MEDS ORDERED: HEPARIN 5,000 UNIT/ML VIAL IVP STA (14:42)
[2019-10-16 18:26] VITALS: BP 177/95
== END 2019-10-16 18:15 | disposition short-term general hospital (02) ==
LOC: ED 13:50
DX: I21.4 Non-ST elevation (NSTEMI) myocardial infarction (principal); I25.10 Atherosclerotic heart disease of native coronary artery without angina pectoris; Z95.5 Presence of coronary angioplasty implant and graft; I10 Essential (primary) hypertension; E78.5 Hyperlipidemia, unspecified
CPT/HCPCS: 36415; 71045; 80053; 83690; 84484; 85025; 93005; 96374; 99284; 99285; A9270

== ENCOUNTER 2019-10-16 18:20 | Outpatient (CLI) | payer MEDICARE, OTHER | END 2019-10-16 18:21 | disposition short-term general hospital (02) | LOC: EMS 18:20 | PROVIDERS: ATTEND Surgery | DX: I21.4 Non-ST elevation (NSTEMI) myocardial infarction (principal) | CPT/HCPCS: A0425; A0429 ==

== ENCOUNTER 2021-05-12 14:08 | Outpatient (CLI) | payer MEDICARE, OTHER ==
[2021-05-12] MEDS ORDERED: IOVERSOL 320 100 ML VIAL IVP ONE ×2 (14:24→17:24)
[2021-05-12] MEDS ORDERED: IOPAMIDOL-300 50 ML VIAL ONE (14:24)
[2021-05-12 14:40] LABS: BASOPHILS % (AUTO) 0.8 %; EOSINOPHILS # (AUTO) 0.1 10^3/uL (0.0-0.7); EOSINOPHILS % (AUTO) 1.4 %; HCT - HEMATOCRIT 43.6 % (42.0-52.0); HGB - HEMOGLOBIN 14.9 g/dL (14.0-18.0); LYMPHOCYTES # (AUTO) 1.5 10^3/uL (1.5-3.5); LYMPHOCYTES % (AUTO) 28.4 %; MEAN CORPUSCULAR HGB CONC 34.2 g/dL (32.0-36.0); MEAN CORPUSCULAR VOLUME 96.7 fL (80.0-94.0); MEAN PLATELET VOLUME 10.8 fL (7.4-11.4); MONOCYTES # (AUTO) 0.4 10^3/uL (0.0-1.0); MONOCYTES % (AUTO) 7.6 %; NEUTROPHILS # (AUTO) 3.2 10^3/uL (1.5-6.6); NEUTROPHILS % (AUTO) 61.4 %; PLT - PLATELET COUNT 173 10^3/uL (130-450); RED BLOOD COUNT 4.51 10^6/uL (4.70-6.10); RED CELL DISTRIBUTION WIDTH 13.3 % (12.0-15.0); WHITE BLOOD COUNT 5.1 x10^3/uL (4.8-10.8)
[2021-05-12 14:52] LABS: ALBUMIN 4.6 g/dL (3.2-5.5); ALBUMIN/GLOBULIN RATIO 1.6 (1.0-2.2); BILIRUBIN,TOTAL 0.7 mg/dL (0.2-1.0); CALCIUM 9.1 mg/dL (8.5-10.3); CREATININE 1.2 mg/dL (0.6-1.2); TOTAL PROTEIN 7.5 g/dL (6.7-8.2)
--- NOTE | 2021-05-12 15:56 | CT Report ---
PROCEDURE: Abdomen/Pelvis W INDICATIONS: RIGHT LOWER QUAD PAIN CONTRAST: IV CONTRAST: Optiray 320 ml: 100 PO CONTRAST: Isovue 300 ml50 TECHNIQUE: After the administration of oral and intravenous contrast, 5 mm thick sections acquired from the diap hragms to the symphysis. 5 mm thick coronal and sagittal reformats were acquired. For radiation dos e reduction, the following was used: automated exposure control, adjustment of mA and/or kV accordin g to patient size. COMPARISON: CT abdomen 01/19/2019 FINDINGS: Image quality: Excellent. ABDOMEN: Lung bases: Lung bases are clear. Heart size is normal. Solid organs: Liver is mildly prominent with steatosis. The spleen is normal in size and enhancement . Gallbladder has been removed. Biliary system is non dilated. Pancreas enhances normally. No adr enal nodules. Kidneys demonstrate normal size and enhancement, without hydronephrosis. Multiple mariaelena ateral renal cysts are present. Peritoneum and bowel: Bowel loops are nonobstructive. Significant colonic diverticula is present. Th ere is a questionable slight appearance of pericolonic stranding within the transverse colon. No free fluid or air. The appendix is normal. No right lower quadrant inflammatory change. Nodes and vessels: No retroperitoneal or mesenteric adenopathy by size criteria. Aorta and inferior vena cava are normal in size. Miscellaneous: No ventral hernias. PELVIS: Genitourinary: Bladder wall thickness is normal. Miscellaneous: No inguinal hernias or adenopathy. Bones: No suspicious bony lesions. No vertebral body compression fractures. IMPRESSION: 1. Prominent colonic diverticula with questionable minimal pericolonic stranding within the transvers e colon. Very early colitis secondary to diverticulitis cannot be excluded. 2. Appendix is normal. Reviewed by: Raquel Betancur MD on 05/12/2021 3:55 PM PDT Approved by: Raquel Betancur MD on 05/12/2021 3:55 PM PDT Station ID: [id number]
[2021-05-12] MEDS ORDERED: IOPAMIDOL-300 50 ML VIAL PO ONE (17:25)
== END 2021-05-12 14:09 | disposition home or self-care (01) ==
LOC: LAB 14:08 → DI 14:09
PROVIDERS: ATTEND Physician Assistant
DX: K57.30 Diverticulosis of large intestine without perforation or abscess without bleeding (principal); R10.31 Right lower quadrant pain; M54.9 Dorsalgia, unspecified; R94.5 Abnormal results of liver function studies; R93.2 Abnormal findings on diagnostic imaging of liver and biliary tract
CPT/HCPCS: 36415; 74177; 80053; 85025; Q9967